=== PATIENT | female | born 1995 | race Caucasian/White ===

== ENCOUNTER 2024-08-12 08:01 | Emergency (ER) | payer MEDICAID, OTHER ==
[~2024-08-12] VITALS: Ht 160 cm; Wt 86.2 kg
[2024-08-12 08:13] VITALS: BP 161/106; TEMP 97.9
[2024-08-12] MEDS ORDERED: HYDROCODONE/APAP 5/325MG TABLET ONE (08:51)
[2024-08-12] MEDS: HYDROCODONE/APAP 5/325MG TABLET PO ONE (08:52)
[2024-08-12] MEDS ORDERED: HYDR-3980 PO (11:07)
[2024-08-12 11:15] VITALS: O2SAT 99
== END 2024-08-12 11:15 | disposition home or self-care (01) ==
LOC: ER 08:24
DX: S67.21XA Crushing injury of right hand, initial encounter (principal); W23.0XXA Caught, crushed, jammed, or pinched between moving objects, initial encounter; Y93.89 Activity, other specified; Y92.89 Other specified places as the place of occurrence of the external cause; Y99.8 Other external cause status
CPT/HCPCS: 73130-TC

== ENCOUNTER 2024-12-14 20:23 | Emergency (ER) | payer OTHER ==
[~2024-12-14] VITALS: Ht 170.2 cm; Wt 79.4 kg
[~2024-12-14 20:23] MED LIST: HYDR-3980 PO
[2024-12-14 20:29] VITALS: BP 161/94; TEMP 98.5
[2024-12-14] MEDS: TDAP [DIPH/PERTUSSIS/TET] 0.5 ML VIAL IM ONE (20:46)
[2024-12-14 22:38] VITALS: O2SAT 98
== END 2024-12-14 22:38 | disposition home or self-care (01) ==
LOC: ER 20:33
DX: S00.91XA Abrasion of unspecified part of head, initial encounter (principal); Z88.0 Allergy status to penicillin; Z79.899 Other long term (current) drug therapy; X58.XXXA Exposure to other specified factors, initial encounter; Y93.89 Activity, other specified; Y92.89 Other specified places as the place of occurrence of the external cause; Y99.8 Other external cause status
CPT/HCPCS: 90715

== ENCOUNTER 2024-12-18 07:36 | Emergency (ER) | payer MEDICAID, OTHER ==
[~2024-12-18] VITALS: Ht 167.6 cm; Wt 92.3 kg
[2024-12-18] MEDS ORDERED: ACET-2605 PO (08:50)
[2024-12-18] MEDS ORDERED: ONDA4TAB11 PO (08:50)
[2024-12-18] MEDS ORDERED: ACETAMINOPHEN ES 500 MG TABLET ONE (08:54)
[2024-12-18] MEDS: ACETAMINOPHEN ES 500 MG TABLET PO ONE (08:57)
[2024-12-18 08:59] VITALS: BP 115/90; TEMP 98.1; O2SAT 100
== END 2024-12-18 09:01 | disposition home or self-care (01) ==
LOC: ER 07:36
DX: J06.9 Acute upper respiratory infection, unspecified (principal); B97.89 Other viral agents as the cause of diseases classified elsewhere; Z88.0 Allergy status to penicillin; Z79.899 Other long term (current) drug therapy